=== PATIENT | male | born 1980 | race Caucasian/White ===

== ENCOUNTER → 2025-01-05 | Outpatient (CLI) | payer MEDICAID, SELFPAY ==
--- NOTE | 2025-01-05 11:30 | XR_ITS ---
Examination: CTA brain, head with intravenous contrast. 2-D sagittal, coronal reconstructions. 3-D reconstructions. Exam date and time: January 05, 2025, 1144 hours INDICATIONS: Headaches 3 years, history frontal CVA 3 years ago CTDI: vol (mGy) 19.9 DLP: (mGycm) 406 Technique: Multiple CTA axial brain, head images post intravenous contrast injection 75 cc, [id number]. 2-D sagittal, coronal reconstructions. 3-D reconstructions, 3-D post processing including vascular maximum intensity projection images. Low dose protocols were performed. One or more of the following dose reduction techniques were used; automated exposure control, adjustment of the mA and/or KV according to patient size, use of iterative reconstruction technique. Findings: Intracranial vertebral arteries basilar artery posterior cerebral branches fill with no large vessel occlusions Juxtasellar supraclinoid portions internal carotid arteries intact M1 segments middle cerebral arteries middle cerebral artery trifurcation vessels fill with no aneurysmal dilatation occlusion or thrombus Visualized anterior cerebral arteries intact IMPRESSION: No cerebral large vessel arterial occlusions, thrombus, dissection or cerebral aneurysm
== END | disposition home or self-care (01) ==
PROVIDERS: Referring Provider Physician Assistant; Visit Provider Physician Assistant
DX: I63.9 Cerebral infarction, unspecified (principal); Z87.828 Personal history of other (healed) physical injury and trauma
CPT/HCPCS: 70496; A4649; Q9967

== ENCOUNTER 2025-05-11 16:37 | Observation (INO) | payer MEDICAID, SELFPAY ==
[2025-05-11 16:55] VITALS: BP 133/86; PULSE 89; RESP 20; TEMP 36.8; O2SAT 100; BMI 22.3
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
--- NOTE | 2025-05-11 17:04 | EKG_ITS ---
[facility] Test Date: 2025-05-11 Pat Name: BHUMIKA ALEX Department: Room: - Gender: Male Training Consultant: : 1980 Requested By: Arvind Shepard (MARI) Order Number: [id number] Reading MD: Arvind Shepard (LOCKS TENDER) Measurements Intervals [place] Rate: 89 P: 76 [place]: 147 QRS: 70 QRSD: 94 T: 48 QT: 315 QTc: 384 Interpretive Statements SINUS RHYTHM INCOMPLETE RIGHT BUNDLE BRANCH BLOCK [90+ ms QRS DURATION, TERMINAL R IN V1/V2, 40+ ms S IN I/aVL/V4/V5/V6] No previous ECG available for comparison /store/S0/[id number]/ecg/[id number].pdf
--- NOTE | 2025-05-11 17:12 | PC.NURSE ---
CALLED PT TO MEDICATE, NO ANSWER.
--- NOTE | 2025-05-11 17:17 | PC.NURSE ---
CALLED PT TO GIVE MEDICATION, NO ANSWER SECOND CALL.
[2025-05-11] MEDS: IBUPROFEN TAB 400 MG TABLET 800 MG PO (17:42)
[2025-05-11 17:48] LABS: Lactate (Lactic Acid) 3.4 mMol/L (0.4-2.0)
[2025-05-11 17:55] LABS: Basophils # (Auto) 0.0 Thou/mm3 (0.0-0.2); Basophils % (Auto) 0 % (0-2.5); Eosinophils # (Auto) 0.4 Thou/mm3 (0.0-0.5); Eosinophils % (Auto) 3 % (0-10); Hematocrit 38.8 % (41.0-53.0); Hemoglobin 12.9 g/dL (13.5-16.0); Immature Granulocytes Auto 0.04 Thou/mm3 (0.00-0.00); Lymphocytes # (Auto) 1.8 Thou/mm3 (1.0-4.8); Lymphocytes % (Auto) 13 % (10-50); Mean Corpuscular HGB Conc 33.2 g/dl (31.0-37.0); Mean Corpuscular Hemoglobin 27.0 pg (25.0-35.0); Mean Corpuscular Volume 81 fL (80-100); Monocytes # (Auto) 1.1 Thou/mm3 (0.0-0.8); Monocytes % (Auto) 8 % (0-12); Neutrophils # (Auto) 10.3 Thou/mm3 (1.8-7.7); Neutrophils % (Auto) 76 % (37-80); Nucleated Red Blood Cell # 0.00 Thou/mm3 (0.00-0.00); Nucleated Red Blood Cell % 0 /100 WBC (0); Platelet Count 234 Thou/mm3 (140-440); RDW Standard Deviation 41.5 fL (35.1-43.9); Red Blood Count 4.77 Miln/mm3 (4.50-5.90); White Blood Count 13.6 Thou/mm3 (3.8-10.6)
[2025-05-11 18:04] LABS: INR 0.9 (0.9-1.3); Prothrombin Time 9.8 Seconds (9.0-12.2)
[2025-05-11 18:08] LABS: Sed Rate (ESR) 15 mm/hr (0-15)
--- NOTE | 2025-05-11 18:11 | XR_ITS ---
EXAMINATION: AP chest single view TECHNIQUE: AP portable upright chest single view Date and time: May 11, 2025, 1814 hours, comparison May 29, 1999 and INDICATION: Fever today. FINDINGS: Normal heart size Mild prominence central pulmonary arteries No lobar pneumonia or pulmonary edema Intact osseous structures IMPRESSION: Suspicious for pulmonary artery hypertension No lobar pneumonia
[2025-05-11 18:14] LABS: Alanine Aminotransferase 27 U/L (10-49); Albumin, Serum 4.1 gm/dL (3.5-5.0); Albumin/Globulin Ratio 1.5 (1.2-2.2); Alkaline Phosphatase 75 U/L (46-116); Anion Gap 11 (7-16); Aspartate Amino Transferase 33 U/L (0-34); BUN/Creatinine Ratio 14 Ratio (12-20); Bilirubin,Total 0.3 mg/dL (0.3-1.2); Blood Urea Nitrogen 14 mg/dL (9-23); C-Reactive Protein 5.4 mg/dL (0.0-0.9); Calcium 8.7 mg/dL (8.3-10.6); Calcium (Corrected) 8.7 mg/dL (8.5-10.1); Carbon Dioxide 29.3 mMol/L (20.0-31.0); Chloride 102 mMol/L (98-107); Creatinine (Component) 1.0 mg/dL (0.6-1.3); Estimated Creatinine Clearance 95.8 mL/min (>60); Globulin 2.7 gm/dL (2.3-3.5); Glucose 107 mg/dL (74-106); Osmolality,Calculated 283 (275-295); Potassium 3.5 mMol/L (3.4-5.1); Procalcitonin 0.19 ng/ml (0.0-0.49); Sodium 142 mMol/L (136-145); Total Protein 6.8 gm/dL (5.7-8.2); Troponin I 0.036 ng/mL (0.0-0.045); eGFR > 60 See Note
[2025-05-11 18:27] LABS: Magnesium 1.9 mg/dL (1.6-2.6)
[2025-05-11 18:32] VITALS: TEMP 37.9
--- NOTE | 2025-05-11 18:43 | PC.NURSE ---
pt refused in and out
[2025-05-11] MEDS: SODIUM CHLORIDE 0.9% 1000 ML 1,000 ML 999 ML IV (18:44)
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
[2025-05-11] MEDS: ceFAZolin/D5W 2 GM IV 2 GM/100 ML BAG IV (18:45)
[2025-05-11 19:18] VITALS: BP 126/86; PULSE 104; RESP 18; TEMP 36.7; O2SAT 98
[2025-05-11 19:28] LABS: Collection Type, Urine Clean Catch; Squamous Epithelial Cell,Urine 0 /hpf (0-5); WBC,Urine 0 /hpf (0-5)
[2025-05-11 19:33] LABS: Bilirubin,Urine Negative (Negative); Blood,Urine 2+ (Negative); Clarity,Urine Clear (Clear/Hazy); Color,Urine Lt-Yellow (Lt Yel-Yel); Culture Indicated,Urine Not Indicated; Glucose, Urine Negative (Negative); Ketones,Urine Negative (Negative); Leukocyte Esterase,Urine Negative (Negative); Nitrite,Urine Negative (Negative); PH,Urine 6.0 (5.0-7.0); Protein,Urine Negative (Neg - Trace); RBC,Urine 8 /hpf (0-3); Specific Gravity,Urine 1.013 (1.001-1.035); Urobilinogen,Urine Negative mg/dL (0.0-1.0)
[2025-05-11 19:59] LABS: Lactate (Lactic Acid) 1.6 mMol/L (0.4-2.0)
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
[2025-05-11 20:39] LABS: Amphetamine/Methamp Scrn,U Positive (Negative); Barbiturate Screen,Urine Negative (Negative); Benzodiazepines Screen,Urine Negative (Negative); Benzoylecgonine Screen, Ur Negative (Negative); Fentanyl Screen,Urine Negative (Negative); Opiate Screen,Urine Negative (Negative); THC Screen,Urine Positive (Negative)
[2025-05-11 20:46] LABS: Reflex Lactate? Y
[2025-05-11 20:49] VITALS: PULSE 80; RESP 16; RESP 96
[2025-05-11 21:00] VITALS: BP 145/96; PULSE 98; RESP 16; TEMP 37.2; O2SAT 99
[2025-05-11] MEDS: KETOROLAC INJ 30 MG/ML VIAL IVP (21:14)
--- NOTE | 2025-05-11 21:18 | PC.NURSE ---
PT DOES NOT TAKE MEDICATIONS AT HOME PT USES MARIJUANA BUT DOES NOT TAKE ANY MEDICATIONS PER PT
--- NOTE | 2025-05-11 21:20 | PC.NURSE ---
MELATONIN NOT AVAILBLE IN [facility] AVAILABLE UPSTAIRS
[2025-05-11 22:00] VITALS: BMI 23.6
[2025-05-11] MEDS: MELATONIN 3 MG TABLET PO (23:22)
[2025-05-12] VITALS: BP 128/88; PULSE 82; RESP 18; TEMP 37.7; O2SAT 96
[2025-05-12 02:41] VITALS: TEMP 37.2
[2025-05-12] MEDS: ACETAMINOPHEN 325 MG TABLET 650 MG PO (02:46)
--- NOTE | 2025-05-12 03:00 | PC.NURSE ---
pt anxious- wants to go home, I'm afraid to . My left arm is swollen. It's hot in the room. They haven't given me antibiotic. I can just take my medicine at home. I feel like my left arm is gonna explode. - Reorientation, reassurance done, lowered room temperature, tylenol given.
[2025-05-12 04:00] VITALS: BP 120/92; PULSE 94; RESP 18; TEMP 37.5; O2SAT 97
[2025-05-12 05:36] LABS: Basophils # (Auto) 0.0 Thou/mm3 (0.0-0.2); Basophils % (Auto) 0 % (0-2.5); Eosinophils # (Auto) 0.1 Thou/mm3 (0.0-0.5); Eosinophils % (Auto) 1 % (0-10); Hematocrit 40.7 % (41.0-53.0); Hemoglobin 13.8 g/dL (13.5-16.0); Immature Granulocytes Auto 0.09 Thou/mm3 (0.00-0.00); Lymphocytes # (Auto) 1.6 Thou/mm3 (1.0-4.8); Lymphocytes % (Auto) 9 % (10-50); Mean Corpuscular HGB Conc 33.9 g/dl (31.0-37.0); Mean Corpuscular Hemoglobin 27.4 pg (25.0-35.0); Mean Corpuscular Volume 81 fL (80-100); Monocytes # (Auto) 1.6 Thou/mm3 (0.0-0.8); Monocytes % (Auto) 9 % (0-12); Neutrophils # (Auto) 14.6 Thou/mm3 (1.8-7.7); Neutrophils % (Auto) 81 % (37-80); Nucleated Red Blood Cell # 0.00 Thou/mm3 (0.00-0.00); Nucleated Red Blood Cell % 0 /100 WBC (0); Platelet Count 239 Thou/mm3 (140-440); RDW Standard Deviation 40.4 fL (35.1-43.9); Red Blood Count 5.04 Miln/mm3 (4.50-5.90); White Blood Count 18.1 Thou/mm3 (3.8-10.6)
--- NOTE | 2025-05-12 06:00 | PC.NURSE ---
left foreearm abrasions with moderate amount of serous drainage- Cleansed with wound cleanser, pat jojo, applied triple antibiotic, covered with 4x4 fluff, wrapped with kerlix. Right knee abrasion- wound cleanser, triple antibiotic, covered with 4x4 fluff, secured with papertape.
[2025-05-12 06:06] LABS: Albumin, Serum 4.0 gm/dL (3.5-5.0); Anion Gap 11 (7-16); BUN/Creatinine Ratio 11 Ratio (12-20); Blood Urea Nitrogen 9 mg/dL (9-23); Calcium 8.8 mg/dL (8.3-10.6); Calcium (Corrected) 8.8 mg/dL (8.5-10.1); Carbon Dioxide 26.3 mMol/L (20.0-31.0); Chloride 107 mMol/L (98-107); Creatinine (Component) 0.8 mg/dL (0.6-1.3); Estimated Creatinine Clearance 124.2 mL/min (>60); Glucose 117 mg/dL (74-106); Osmolality,Calculated 286 (275-295); Phosphorous 3.7 mg/dL (2.4-5.1); Potassium 3.6 mMol/L (3.4-5.1); Sodium 144 mMol/L (136-145); eGFR > 60 See Note
[2025-05-12] MEDS: KETOROLAC INJ 30 MG/ML VIAL IVP (06:27)
--- NOTE | 2025-05-12 06:32 | PC.NURSE ---
T=99.5- cooling mwasures applied.
[2025-05-12 08:00] VITALS: BP 133/87; PULSE 96; RESP 18; TEMP 37.2; O2SAT 96
--- NOTE | 2025-05-12 08:59 | PC.NURSE ---
cleaned wound with wound cleanser, scabbing, wrapped with Kerlex
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
== END 2025-05-12 08:48 | disposition home or self-care (01) ==
LOC: SERX 19:47 → S3NX 05-12 08:21 → SERHOLD 05-17 13:33
PROVIDERS: Nurse Practitioner Primary Care; Admitting Provider Student in an Organized Health Care Education/Training Program; Emergency Provider Emergency Medicine; PCP Family Medicine; Visit Provider Student in an Organized Health Care Education/Training Program
DX: L03.114 Cellulitis of left upper limb (principal); G93.40 Encephalopathy, unspecified; Z86.73 Personal history of transient ischemic attack (TIA), and cerebral infarction without residual deficits; M40.204 Unspecified kyphosis, thoracic region; F12.90 Cannabis use, unspecified, uncomplicated; F15.90 Other stimulant use, unspecified, uncomplicated
CPT/HCPCS: 36415; 70450; 71045; 72125; 73060; 73080; 73090; 80053; 80069; 80307; 81001; 83605; 83735; 84145; 84484; 85025; 85610; 85652; 86140; 87040; 93005; 96365; 96375; 96376; 99284; G0378; J0689; J1885; J7030; A9270

== ENCOUNTER 2025-05-13 03:37 | Inpatient (IN) | payer MEDICAID, SELFPAY ==
[2025-05-13 03:39] VITALS: BMI 21.9
[2025-05-13 03:48] VITALS: BP 136/89; PULSE 113; RESP 18; TEMP 37.6; O2SAT 98
--- NOTE | 2025-05-13 03:51 | XR_ITS ---
Examination: Duplex scan of the upper extremity, unilateral left Date and time of exam: May 13, 2025, 0400 hours INDICATIONS: Left arm swelling beginning 3 days ago Technique: Duplex scan of the extremity veins using B-mode/grayscale imaging and Doppler spectral analysis and color flow Attention is directed to internal echogenicity, compression and augmentation involving these veins, color flow assessment, spectral analysis Findings: Major deep venous structures in the extremity demonstrate normal course and caliber. There is no evidence of deep vein thrombosis. Normal color flow and spectral analysis Impression: Negative for DVT..
--- NOTE | 2025-05-13 03:51 | PD.EDRME ---
Rapid Medical Screening Exam RME Arrival date/time: 05/13/25 03:37 44M with history of CVA and drug use presents to ED with worsening LUE redness, pain, swelling, and fevers/chills. Patient signed out AMA from upstairs yesterday because they were planning on discharging him anyway. 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 Chief Complaint: General Adult/Misc Complain Vital signs: Vital Signs Temperature 99.7 F 05/13/25 03:48 Pulse Rate 113 H 05/13/25 03:48 Respiratory Rate 18 05/13/25 03:48 Blood Pressure 136/89 H 05/13/25 03:48 Pulse Oximetry (%) 98 05/13/25 03:48 Oxygen Delivery Method Room Air 05/13/25 03:48 Exam: LUE redness and swelling. Clinical Impression: cellulitis vs DVT vs infected DVT
[2025-05-13 04:39] LABS: Lactate (Lactic Acid) 1.7 mMol/L (0.4-2.0)
[2025-05-13 04:45] LABS: Basophils # (Auto) 0.1 Thou/mm3 (0.0-0.2); Basophils % (Auto) 0 % (0-2.5); Eosinophils # (Auto) 0.3 Thou/mm3 (0.0-0.5); Eosinophils % (Auto) 2 % (0-10); Hematocrit 38.4 % (41.0-53.0); Hemoglobin 12.6 g/dL (13.5-16.0); Immature Granulocytes Auto 0.10 Thou/mm3 (0.00-0.00); Lymphocytes # (Auto) 1.4 Thou/mm3 (1.0-4.8); Lymphocytes % (Auto) 9 % (10-50); Mean Corpuscular HGB Conc 32.8 g/dl (31.0-37.0); Mean Corpuscular Hemoglobin 26.6 pg (25.0-35.0); Mean Corpuscular Volume 81 fL (80-100); Monocytes # (Auto) 1.5 Thou/mm3 (0.0-0.8); Monocytes % (Auto) 9 % (0-12); Neutrophils # (Auto) 12.7 Thou/mm3 (1.8-7.7); Neutrophils % (Auto) 79 % (37-80); Nucleated Red Blood Cell # 0.00 Thou/mm3 (0.00-0.00); Nucleated Red Blood Cell % 0 /100 WBC (0); Platelet Count 260 Thou/mm3 (140-440); RDW Standard Deviation 41.0 fL (35.1-43.9); Red Blood Count 4.73 Miln/mm3 (4.50-5.90); White Blood Count 16.0 Thou/mm3 (3.8-10.6)
[2025-05-13 04:51] LABS: Sed Rate (ESR) 39 mm/hr (0-15)
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
[2025-05-13 05:15] LABS: Alanine Aminotransferase 49 U/L (10-49); Albumin, Serum 4.0 gm/dL (3.5-5.0); Albumin/Globulin Ratio 1.5 (1.2-2.2); Alkaline Phosphatase 86 U/L (46-116); Anion Gap 11 (7-16); Aspartate Amino Transferase 38 U/L (0-34); BUN/Creatinine Ratio 11 Ratio (12-20); Bilirubin,Total 0.2 mg/dL (0.3-1.2); Blood Urea Nitrogen 10 mg/dL (9-23); C-Reactive Protein 16.4 mg/dL (0.0-0.9); Calcium 8.6 mg/dL (8.3-10.6); Calcium (Corrected) 8.6 mg/dL (8.5-10.1); Carbon Dioxide 25.4 mMol/L (20.0-31.0); Chloride 105 mMol/L (98-107); Creatinine (Component) 0.9 mg/dL (0.6-1.3); Estimated Creatinine Clearance 107.7 mL/min (>60); Globulin 2.7 gm/dL (2.3-3.5); Glucose 116 mg/dL (74-106); Osmolality,Calculated 281 (275-295); Potassium 3.5 mMol/L (3.4-5.1); Procalcitonin 0.32 ng/ml (0.0-0.49); Sodium 141 mMol/L (136-145); Total Protein 6.7 gm/dL (5.7-8.2); eGFR > 60 See Note
[2025-05-13 06:04] VITALS: BP 103/70; PULSE 82; RESP 15; TEMP 36.8; O2SAT 95
[2025-05-13] MEDS: CLINDAMYCIN 900MG IVPB 900 MG in PRE-MIXED 1 BAG 50 MG IV (06:12)
[2025-05-13] MEDS: MORPHINE SULF INJ 4 MG/ML VIAL IVP (06:13)
[2025-05-13] MEDS: SODIUM CHLORIDE 0.9% 1000 ML 1,000 ML 999 ML IV (06:13)
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
[2025-05-13 11:01] VITALS: BP 123/76; PULSE 95; RESP 19; O2SAT 99
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
[2025-05-13] MEDS: NICOTINE PATCH 14 MG/24 HR PATCH.TD24 TOP (14:36)
[2025-05-13 14:46] VITALS: BP 125/90; PULSE 90; RESP 18; TEMP 37.2; O2SAT 98
[2025-05-13] MEDS: Vancomycin Inj 1,500 MG in SODIUM CHLORIDE 0.9% 500 ML 500 ML 250 MG IV (14:54)
[2025-05-13] MEDS: ACETAMIN/CAFF/BUTAL (Fioricet) 1 TAB 2 TAB PO (14:54)
--- NOTE | 2025-05-13 16:10 | PC.NURSE ---
Report called to Kourtney MALCOLM
[2025-05-13 17:14] VITALS: BMI 21.9
[2025-05-13 20:00] VITALS: BP 120/85; PULSE 101; RESP 18; TEMP 36.7; O2SAT 97
[2025-05-14] VITALS (8 sets, daily range): BP systolic 130–146; BP diastolic 87–93; PULSE 74–106; RESP 17–97; TEMP 36.8–37.6; O2SAT 93–100
[2025-05-14 06:02] LABS: Basophils # (Auto) 0.1 Thou/mm3 (0.0-0.2); Basophils % (Auto) 0 % (0-2.5); Eosinophils # (Auto) 0.3 Thou/mm3 (0.0-0.5); Eosinophils % (Auto) 3 % (0-10); Hematocrit 37.6 % (41.0-53.0); Hemoglobin 12.4 g/dL (13.5-16.0); Immature Granulocytes Auto 0.09 Thou/mm3 (0.00-0.00); Lymphocytes # (Auto) 2.0 Thou/mm3 (1.0-4.8); Lymphocytes % (Auto) 15 % (10-50); Mean Corpuscular HGB Conc 33.0 g/dl (31.0-37.0); Mean Corpuscular Hemoglobin 26.4 pg (25.0-35.0); Mean Corpuscular Volume 80 fL (80-100); Monocytes # (Auto) 1.3 Thou/mm3 (0.0-0.8); Monocytes % (Auto) 10 % (0-12); Neutrophils # (Auto) 9.7 Thou/mm3 (1.8-7.7); Neutrophils % (Auto) 72 % (37-80); Nucleated Red Blood Cell # 0.00 Thou/mm3 (0.00-0.00); Nucleated Red Blood Cell % 0 /100 WBC (0); Platelet Count 306 Thou/mm3 (140-440); RDW Standard Deviation 41.1 fL (35.1-43.9); Red Blood Count 4.70 Miln/mm3 (4.50-5.90); White Blood Count 13.5 Thou/mm3 (3.8-10.6)
[2025-05-14 06:21] LABS: Anion Gap 11 (7-16); BUN/Creatinine Ratio 9 Ratio (12-20); Blood Urea Nitrogen 8 mg/dL (9-23); Calcium 8.7 mg/dL (8.3-10.6); Carbon Dioxide 26.7 mMol/L (20.0-31.0); Chloride 104 mMol/L (98-107); Creatinine (Component) 0.9 mg/dL (0.6-1.3); Estimated Creatinine Clearance 107.7 mL/min (>60); Glucose 118 mg/dL (74-106); Osmolality,Calculated 282 (275-295); Potassium 3.7 mMol/L (3.4-5.1); Sodium 142 mMol/L (136-145); eGFR > 60 See Note
[2025-05-14] MEDS: NICOTINE PATCH 14 MG/24 HR PATCH.TD24 TOP (08:35)
[2025-05-14] MEDS: VANCOMYCIN/WATER 1GM IVPB 200 ML IV ×2 (09:46→21:43)
--- NOTE | 2025-05-14 09:47 | ESPR_ITS ---
<Statement entered by Rosalie Wolfe MD - 05/16/25 08:03> I reviewed above note and agree with findings and plans. I have also personally examined the patient with medicine team and went over assessment and plan with medical team including analytics intern and resident physician. Documentation for date of: 05/14/25 Subjective Subjective Interval history: Patient seen and examined this morning. Reports significant improvement in left upper extremity pain and swelling compared to yesterday. States pain is much better and swelling has markedly decreased. Denies fevers, chills, nausea, vomiting, chest pain, shortness of breath, or new complaints. Tolerating diet. No issues with current medications. Exam Vital Signs Temp Pulse Resp BP Pulse Ox O2 Del Method 98.9 F 89 19 130/88 H 97 Room Air 05/14/25 08:00 05/14/25 08:00 05/14/25 08:00 05/14/25 08:00 05/14/25 08:00 05/14/25 08:00 Narrative Exam General: Awake, alert, oriented ?3, non-toxic appearing HEENT: Normocephalic, atraumatic; pupils equal and reactive; moist oral mucosa Neck: Supple, no meningismus, no JVD Cardiovascular: Regular rate and rhythm, no murmurs Respiratory: Clear to auscultation bilaterally, no distress Abdomen: Soft, non-tender, non-distended Extremities: * Left upper extremity with markedly improved erythema and swelling compared to prior exams * No new drainage or purulence * No fluctuance or crepitus * Improved range of motion Neuro: No focal deficits Skin: Warm, dry Neurologic: Cranial nerves II?XII intact; no focal deficits; GCS 15 Psychiatric: Cooperative, appropriate mood and affect Objective Labs 05/14/25 04:59 05/14/25 04:59 Labs: Laboratory Results - last 24 hr 05/14/25 04:59 WBC 13.5 H RBC 4.70 Hgb 12.4 L Hct 37.6 L MCV 80 MCH 26.4 MCHC 33.0 RDW Std Deviation 41.1 Plt Count 306 D Neut % (Auto) 72 Lymph % (Auto) 15 Reagan % (Auto) 10 Eos % (Auto) 3 Baso % (Auto) 0 Neut # (Auto) 9.7 H Lymph # (Auto) 2.0 Reagan # (Auto) 1.3 H Eos # (Auto) 0.3 Baso # (Auto) 0.1 Immature Gran # (Auto) 0.09 H Absolute Nucleated RBC 0.00 Immature Gran % 1 H Nucleated RBC % 0 Sodium 142 Potassium 3.7 Chloride 104 Carbon Dioxide 26.7 Anion Gap 11 BUN 8 L Creatinine 0.9 Estim Creat Clear Calc 107.7 eGFR > 60 BUN/Creatinine Ratio 9 L Glucose 118 H Calculated Osmolality 282 Calcium 8.7 Quality Measures Quality Measures VTE prophylaxis Assessment & Plan Assessment Current Active Medications: Generic Name Dose Route Start Last Admin Trade Name Freq PRN Reason Stop Dose Admin Acetaminophen 650 mg 05/13/25 14:05 Acetaminophen 325 Mg Tablet PO 06/12/25 14:04 Q6H PRN Fever >100.4 or pain 1-5 Hydrocodone Bitart/Acetaminophen 1 tab 05/13/25 14:05 Hydrocodone/Apap 5/325 Tablet PO 05/18/25 14:04 Q6HR PRN Pain Scale 6-10 Docusate Sodium 100 mg 05/13/25 14:05 Docusate Sod 100 Mg Capsule PO 06/12/25 14:04 QDAY PRN CONSTIPATION Protocol Enoxaparin Sodium 40 mg 05/14/25 09:00 05/14/25 08:41 Enoxaparin Sod Inj 40 Mg/0.4 Ml Syringe SC 05/28/25 08:59 Not Given QDAY ERIK Vancomycin HCl 200 mls @ 120 mls/hr 05/14/25 10:00 05/14/25 09:46 Vancomycin/Water 1gm Ivpb IV 05/21/25 09:59 120 mls/hr BID@1000,2200 ERIK Administration Nicotine 14 mg 05/13/25 14:15 05/14/25 08:35 Nicotine Patch 14 Mg/24 Hr Patch.Td24 TOP 06/12/25 14:14 14 mg QDAY ERIK Administration Ondansetron HCl 4 mg 05/13/25 14:05 Ondansetron Inj 2 Mg/Ml Inj 2 Ml IVP 06/12/25 14:04 Q6H PRN NAUSEA OR VOMITING Protocol Pantoprazole Sodium 40 mg 05/14/25 09:00 05/14/25 08:35 Pantoprazole Inj 40 Mg Vial IVP 06/13/25 08:59 40 mg QDAY ERIK Administration Pharmacy Consult 1 each 05/13/25 14:15 Vancomycin Pharmacy To Dose 1 Each Each IV 06/12/25 14:14 QDAY PRN SSTI Plan 44-year-old male with history of CVA, traumatic brain injury, and polysubstance use, admitted under observation for severe left upper extremity cellulitis, now clinically improving on IV antibiotics. # Severe Left Upper Extremity Cellulitis with Purulence # Failure of Outpatient Antibiotic Therapy Progressive traumatic cellulitis following dermabrasion from recent fall, now with worsening erythema, swelling, circumferential edema from wrist to axilla, and gross purulence. Associated with chills and elevated inflammatory markers. Failure of outpatient therapy is due to inability to obtain antibiotics, rather than true non-response. Leukocytosis and elevated ESR/CRP without hypotension, lactic acidosis, or end- organ dysfunction; no current evidence of sepsis. Necrotizing soft tissue infection considered but less likely given hemodynamic stability, normal lactate, absence of crepitus, skin necrosis or pain out of proportion, and CTA negative for deep tissue involvement. Given extent of infection and purulence, requires close monitoring. 05/14: Improving cellulitis with decreasing pain, swelling, and erythema on IV therapy. No evidence of sepsis or necrotizing infection at this time. Plan: * Continue IV vancomycin for one more day * Continue serial exams of LUE * Maintain elevation of affected extremity * Monitor WBC and clinical status * Plan to transition to oral antibiotics and discharge tomorrow if improvement continues # Nicotine Dependence # Polysubstance Use Disorder # Caffeine Dependence # Withdrawal Prevention Active daily smoker. History of methamphetamine and marijuana use. No signs of acute intoxication or withdrawal at this time. Reports daily caffeine use with risk of withdrawal headaches during hospitalization. Plan: * Start nicotine patch * Smoking cessation counseling * Start caffeine tablets as needed * Syrup Maker on substance cessation * Monitor mental status # History of CVA and Traumatic Brain Injury No acute neurologic deficits on presentation. Plan: * Continue neurologic monitoring * Fall precautions Health Maintenance: Diet: Regular DVT Prophylaxis: Enoxaparin Lines: PIV Code Status: Full Code ----- Plan discussed with attending physician Dr. Aiden Copeland MD PGY-1 Internal Medicine
[2025-05-15] VITALS (8 sets, daily range): BP systolic 107–135; BP diastolic 76–99; PULSE 73–103; RESP 17–99; TEMP 36.3–37.4; O2SAT 94–100
[2025-05-15] MEDS: ACETAMINOPHEN 325 MG TABLET 650 MG PO ×2 (00:07→22:39)
[2025-05-15 06:09] LABS: Basophils # (Auto) 0.1 Thou/mm3 (0.0-0.2); Basophils % (Auto) 1 % (0-2.5); Eosinophils # (Auto) 0.6 Thou/mm3 (0.0-0.5); Eosinophils % (Auto) 4 % (0-10); Hematocrit 37.5 % (41.0-53.0); Hemoglobin 12.6 g/dL (13.5-16.0); Immature Granulocytes Auto 0.18 Thou/mm3 (0.00-0.00); Lymphocytes # (Auto) 2.3 Thou/mm3 (1.0-4.8); Lymphocytes % (Auto) 18 % (10-50); Mean Corpuscular HGB Conc 33.6 g/dl (31.0-37.0); Mean Corpuscular Hemoglobin 27.0 pg (25.0-35.0); Mean Corpuscular Volume 81 fL (80-100); Monocytes # (Auto) 1.3 Thou/mm3 (0.0-0.8); Monocytes % (Auto) 10 % (0-12); Neutrophils # (Auto) 8.9 Thou/mm3 (1.8-7.7); Neutrophils % (Auto) 67 % (37-80); Nucleated Red Blood Cell # 0.00 Thou/mm3 (0.00-0.00); Nucleated Red Blood Cell % 0 /100 WBC (0); Platelet Count 360 Thou/mm3 (140-440); RDW Standard Deviation 41.8 fL (35.1-43.9); Red Blood Count 4.66 Miln/mm3 (4.50-5.90); White Blood Count 13.4 Thou/mm3 (3.8-10.6)
[2025-05-15 06:26] LABS: Anion Gap 9 (7-16); BUN/Creatinine Ratio 13 Ratio (12-20); Blood Urea Nitrogen 10 mg/dL (9-23); Calcium 8.6 mg/dL (8.3-10.6); Carbon Dioxide 29.0 mMol/L (20.0-31.0); Chloride 107 mMol/L (98-107); Creatinine (Component) 0.8 mg/dL (0.6-1.3); Estimated Creatinine Clearance 121.2 mL/min (>60); Glucose 104 mg/dL (74-106); Osmolality,Calculated 287 (275-295); Potassium 3.7 mMol/L (3.4-5.1); Sodium 145 mMol/L (136-145); eGFR > 60 See Note
[2025-05-15 09:53] LABS: Vancomycin,Trough 5.3 mcg/mL (5.0-10.0)
[2025-05-15] MEDS: NICOTINE PATCH 14 MG/24 HR PATCH.TD24 TOP (10:02)
[2025-05-15] MEDS: ENOXAPARIN SOD INJ 40 MG/0.4 ML SYRINGE SC (10:02)
[2025-05-15] MEDS: VANCOMYCIN/WATER 1GM IVPB 200 ML IV ×2 (10:53→22:02)
--- NOTE | 2025-05-15 12:40 | ESPR_ITS ---
<Statement entered by Rosalie Wolfe MD - 05/16/25 14:34> I reviewed above note and agree with findings and plans. I have also personally examined the patient with medicine team and went over assessment and plan with medical team including international account manager and resident physician. <Statement entered by Josiah Dumont MD - 05/15/25 13:18> Patient was examined and case was reviewed with team including attending physician. Note reviewed, I agree with most of its contents and agree with the patient's care as documented by Dr. Hines Patient seen today at the bedside found awake, alert, orientedx3. No overnight events reported. No active complaints at this time states improvement with range of motion of left upper extremity. Vitals and labs reviewed. Patient will continue 1 more day of IV antibiotic therapy. Patient will be transition to p.o. route in the a.m. and possible discharge in the next 24-48 hours. case discussed with my attending Dr. Aiden Dumont MD PGY-2 Disclaimer: Despite multiple revisions, due to the dictation software being used, the document bellow may not be free of grammatical errors including phonetic/typographic errors. However, this does not deter from our commitment to providing health care in the patient's best interest in mind. Documentation for date of: 05/15/25 Subjective Subjective Interval history: - No acute events overnight. - Patient seen and examined at bedside this morning. - Reports improvement in left upper extremity pain and swelling compared to yesterday. - Reports that pain is well controlled. - Patient has no complaints at this time. - Continue with IV Vancomycin. Will discharge with Bactrim. Exam Vital Signs Temp Pulse Resp BP Pulse Ox O2 Del Method 98.6 F 94 18 131/99 H 99 Room Air 05/15/25 12:00 05/15/25 12:00 05/15/25 12:00 05/15/25 12:00 05/15/25 12:00 05/15/25 12:00 Narrative Exam Physical Exam General: Awake and in no acute distress. Conversational and non-toxic appearing. HEENT: Normocephalic, atraumatic, extraocular movements intact, pupils equal and reactive to light. No JVD or bruits. Heart: Regular rate and rhythm, no murmurs, rubs or gallops. Lungs: Clear to auscultation with no wheezing or crackles bilaterally. Non- labored respirations, symmetric chest rise, no use of accessory muscles. Abdomen: Soft, nondistended, nontender. No guarding or rebound tenderness. Neurologic: Alert and oriented x3, no gross neurological deficit, and patient able to move all 4 extremities. Extremities: Left upper extremity with markedly improved erythema and swelling. No new drainage or purulence. No fluctuance or crepitus. Improved range of motion. Skin: Warm and dry without rashes. Psychiatric: Cooperative, appropriate mood and affect. Objective Labs 05/15/25 04:35 05/15/25 04:35 Labs: Laboratory Results - last 24 hr 05/15/25 05/15/25 04:35 09:08 WBC 13.4 H RBC 4.66 Hgb 12.6 L Hct 37.5 L MCV 81 MCH 27.0 MCHC 33.6 RDW Std Deviation 41.8 Plt Count 360 D Neut % (Auto) 67 Lymph % (Auto) 18 Garfield % (Auto) 10 Eos % (Auto) 4 Baso % (Auto) 1 Neut # (Auto) 8.9 H Lymph # (Auto) 2.3 Garfield # (Auto) 1.3 H Eos # (Auto) 0.6 H Baso # (Auto) 0.1 Immature Gran # (Auto) 0.18 H Absolute Nucleated RBC 0.00 Immature Gran % 1 H Nucleated RBC % 0 Sodium 145 Potassium 3.7 Chloride 107 Carbon Dioxide 29.0 Anion Gap 9 BUN 10 Creatinine 0.8 Estim Creat Clear Calc 121.2 eGFR > 60 BUN/Creatinine Ratio 13 Glucose 104 Calculated Osmolality 287 Calcium 8.6 Vancomycin Trough 5.3 Quality Measures Quality Measures VTE prophylaxis Assessment & Plan Assessment Current Active Medications: Generic Name Dose Route Start Last Admin Trade Name Freq PRN Reason Stop Dose Admin Acetaminophen 650 mg 05/13/25 14:05 05/15/25 00:07 Acetaminophen 325 Mg Tablet PO 06/12/25 14:04 650 mg Q6H PRN Administration Fever >100.4 or pain 1-5 Hydrocodone Bitart/Acetaminophen 1 tab 05/13/25 14:05 Hydrocodone/Apap 5/325 Tablet PO 05/18/25 14:04 Q6HR PRN Pain Scale 6-10 Docusate Sodium 100 mg 05/13/25 14:05 Docusate Sod 100 Mg Capsule PO 06/12/25 14:04 QDAY PRN CONSTIPATION Protocol Enoxaparin Sodium 40 mg 05/14/25 09:00 05/15/25 10:02 Enoxaparin Sod Inj 40 Mg/0.4 Ml Syringe SC 05/28/25 08:59 40 mg QDAY ERIK Administration Vancomycin HCl 200 mls @ 120 mls/hr 05/15/25 10:45 05/15/25 10:53 Vancomycin/Water 1gm Ivpb IV 05/22/25 10:44 120 mls/hr TID ERIK Administration Nicotine 14 mg 05/13/25 14:15 05/15/25 10:02 Nicotine Patch 14 Mg/24 Hr Patch.Td24 TOP 06/12/25 14:14 14 mg QDAY ERIK Administration Ondansetron HCl 4 mg 05/13/25 14:05 Ondansetron Inj 2 Mg/Ml Inj 2 Ml IVP 06/12/25 14:04 Q6H PRN NAUSEA OR VOMITING Protocol Pantoprazole Sodium 40 mg 05/14/25 09:00 05/15/25 10:02 Pantoprazole Inj 40 Mg Vial IVP 06/13/25 08:59 40 mg QDAY ERIK Administration Pharmacy Consult 1 each 05/13/25 14:15 Vancomycin Pharmacy To Dose 1 Each Each IV 06/12/25 14:14 QDAY PRN SSTI Plan 44-year-old male with history of CVA, traumatic brain injury, and polysubstance use, admitted under observation for severe left upper extremity cellulitis, now clinically improving on IV antibiotics. #Severe left upper extremity cellulitis with purulence #Failure of outpatient antibiotic therapy - Progressive traumatic cellulitis following dermabrasion from recent fall, now with worsening erythema, swelling, circumferential edema from wrist to axilla, and gross purulence. - Associated with chills and elevated inflammatory markers. - Failure of outpatient therapy is due to inability to obtain antibiotics, rather than true non-response. - Leukocytosis and elevated ESR/CRP without hypotension, lactic acidosis, or end-organ dysfunction. No current evidence of sepsis. - Necrotizing soft tissue infection considered but less likely given hemodynamic stability, normal lactate, absence of crepitus, skin necrosis or pain out of proportion, and CTA negative for deep tissue involvement. - Given extent of infection and purulence, requires close monitoring. - No evidence of sepsis or necrotizing infection at this time. Plan: * Continue IV vancomycin (05/14-). * Continue serial exams of LUE. * Maintain elevation of affected extremity. * Monitor WBC and clinical status. * Plan to transition to oral antibiotics and discharge tomorrow if improvement continues. #Nicotine dependence #Polysubstance use disorder #Caffeine dependence #Withdrawal prevention - Active daily smoker. - History of methamphetamine and marijuana use. - No signs of acute intoxication or withdrawal at this time. - Reports daily caffeine use with risk of withdrawal headaches during hospitalization. Plan: * Continue nicotine patch. * Smoking cessation counseling. * Continue caffeine tablets as needed. * Marketing Support Coordinator on substance cessation. * Monitor mental status. #History of CVA and traumatic brain injury - No acute neurological deficits on presentation. Plan: * Continue neurological monitoring. * Fall precautions. Health Maintenance Disposition: med surg DVT prophylaxis: Enoxaparin GI prophylaxis: Pantoprazole 40 mg IV daily Diet: regular Lines: Peripheral IV CODE STATUS: FULL --- Patient plan of care was discussed with the senior resident, Dr. Ariel Dumont, and attending physician, Dr. Wolfe. Aida Hines DO PGY-1
--- NOTE | 2025-05-15 14:24 | PC.SS ---
Kristian Perez is a 44 year-old male admitted to [facility] for Cellulitis. SS conducted bedside contact with the patient to complete initial assessment and to discuss discharge planning. Role and reason explained. Patient confirmed demographic information. Patient identifies his dad Kristian Perez [phone] as his surrogate decision maker. Pt states he is able to complete all ADL?s independent. Pt does not utilize and DME. Pts PCP is [facility]. Pharmacy of choice is [facility]. Discharge options discussed and the pt wishes to return home.? Pt dad will provide transport. No further intervention required at this time, marriage and family social worker would be available to address any further concerns. DC Plan: Home Contact: Ryan Townsend Address: Confirmed on face sheet PCP: [facility]
[2025-05-15] MEDS: MELATONIN 3 MG TABLET 6 MG PO (22:39)
[2025-05-16] VITALS: BP 121/86; PULSE 75; RESP 19; TEMP 36.5; O2SAT 96
[2025-05-16 04:00] VITALS: BP 135/87; PULSE 74; RESP 16; TEMP 36.1; O2SAT 97
[2025-05-16] MEDS: VANCOMYCIN/WATER 1GM IVPB 200 ML IV (05:47)
[2025-05-16 06:04] LABS: Basophils # (Auto) 0.2 Thou/mm3 (0.0-0.2); Basophils % (Auto) 2 % (0-2.5); Eosinophils # (Auto) 0.7 Thou/mm3 (0.0-0.5); Eosinophils % (Auto) 5 % (0-10); Hematocrit 39.7 % (41.0-53.0); Hemoglobin 12.9 g/dL (13.5-16.0); Immature Granulocytes Auto 0.61 Thou/mm3 (0.00-0.00); Lymphocytes # (Auto) 2.6 Thou/mm3 (1.0-4.8); Lymphocytes % (Auto) 20 % (10-50); Mean Corpuscular HGB Conc 32.5 g/dl (31.0-37.0); Mean Corpuscular Hemoglobin 26.3 pg (25.0-35.0); Mean Corpuscular Volume 81 fL (80-100); Monocytes # (Auto) 1.2 Thou/mm3 (0.0-0.8); Monocytes % (Auto) 9 % (0-12); Neutrophils # (Auto) 7.8 Thou/mm3 (1.8-7.7); Neutrophils % (Auto) 60 % (37-80); Nucleated Red Blood Cell # 0.00 Thou/mm3 (0.00-0.00); Nucleated Red Blood Cell % 0 /100 WBC (0); Platelet Count 423 Thou/mm3 (140-440); RDW Standard Deviation 41.8 fL (35.1-43.9); Red Blood Count 4.90 Miln/mm3 (4.50-5.90); White Blood Count 13.1 Thou/mm3 (3.8-10.6)
[2025-05-16 06:51] LABS: Anion Gap 11 (7-16); BUN/Creatinine Ratio 14 Ratio (12-20); Blood Urea Nitrogen 11 mg/dL (9-23); Calcium 8.9 mg/dL (8.3-10.6); Carbon Dioxide 26.1 mMol/L (20.0-31.0); Chloride 107 mMol/L (98-107); Creatinine (Component) 0.8 mg/dL (0.6-1.3); Estimated Creatinine Clearance 121.2 mL/min (>60); Glucose 101 mg/dL (74-106); Magnesium 2.2 mg/dL (1.6-2.6); Osmolality,Calculated 286 (275-295); Phosphorous 4.2 mg/dL (2.4-5.1); Potassium 4.1 mMol/L (3.4-5.1); Sodium 144 mMol/L (136-145); eGFR > 60 See Note
[2025-05-16 08:00] VITALS: BP 116/92; PULSE 83; RESP 17; TEMP 36.7; O2SAT 98
[2025-05-16] MEDS: NICOTINE PATCH 14 MG/24 HR PATCH.TD24 TOP (08:42)
[2025-05-16] MEDS: ENOXAPARIN SOD INJ 40 MG/0.4 ML SYRINGE SC (08:42)
--- NOTE | 2025-05-16 12:06 | ESDS_ITS ---
<Statement entered by Rosalie Wolfe MD - 05/27/25 07:44> I reviewed above note and agree with findings and plans. I have also personally examined the patient with medicine team and went over assessment and plan with medical team including internet ecommerce specialist and resident physician. <Statement entered by Josiah Dumont MD - 05/16/25 14:13> Patient was examined and case was reviewed with team including attending physician. Note reviewed, I agree with most of its contents and agree with the patient's care. Josiah Dumont MD PGY-2 Planned Discharge Date 05/16/25 DS: Providers Provider Date of admission: 05/15/25 17:20 Primary care physician: Cain Reyna MD Admitting Provider: Rosalie Wolfe MD Attending Provider on Admission: Rosalie Wolfe MD Consults: 05/13/25 14:07 Referral OP Wound Healing Dept Routine Comment: Attending Provider on DC: Rosaile Wolfe MD Discharging Provider: Aida Hines DO Anticipated date of discharge: 05/16/25 DS: Diagnosis Problem List Completed Was Problem List Reviewed/Reconciled?: Yes Hospital Course Hospital Course Hospital course: 44-year-old male with a history of prior cerebrovascular accident, traumatic brain injury with bilateral subdural hematomas and occipital bone fractures, and polysubstance use who re-presented to the emergency department on 05/13/2025 with worsening left upper extremity pain, swelling, erythema, and purulence, associated with chills, following recent discharge for left upper extremity cellulitis. The patient had been discharged on 05/12/2025 on oral antibiotics but was unable to initiate therapy due to lack of pharmacy access, resulting in progression of infection. On re-presentation, examination was notable for purulent drainage and circumferential edema extending from the wrist toward the axilla. Initial workup showed leukocytosis and elevated inflammatory markers. CTA of the left upper extremity and venous Doppler ultrasound were negative for vascular pathology or deep vein thrombosis. The patient was admitted and started on IV vancomycin with close clinical monitoring. Blood cultures remained negative. Over the course of hospitalization, the patient demonstrated marked clinical improvement, with decreasing pain, swelling, and erythema of the left upper extremity, and down-trending white blood cell count. There was no evidence of sepsis, necrotizing soft tissue infection, or need for surgical intervention. By the day of discharge, the patient was afebrile, hemodynamically stable, tolerating oral intake, and had significant improvement in left upper extremity cellulitis after completion of IV antibiotics. He was transitioned to oral antibiotics and deemed medically stable for discharge home with close outpatient follow-up and strict return precautions. Patient is medically and physically stable for discharge. Discharge Diagnoses: #Severe Left Upper Extremity Cellulitis with Purulence #Failure of Outpatient Antibiotic Therapy #Polysubstance Use Disorder #History of Cerebrovascular Accident #History of Traumatic Brain Injury with Prior Subdural Hematomas Discharge Plan: Follow up with primary care physician within 1 week of discharge Instructions have been explained to the patient with regards to their medi cations and how to take them. Patient was able to explain back to physician and nursing staff how to take their medications. Patient expressed understanding with instructions. New Medications: Bactrim which is an antibiotic for 9 more days, please take as prescribed. Continue to take the rest of your medications as prescribed by your primary care physician. Patient has been explained that should any symptoms recur or worsen patient is instructed to return to the Emergency Department. --- Case discussed with my senior resident Dr. Ariel Dumont Case discussed with my attending Dr. Wolfe. Aida Hines DO PGY-1 Status at Discharge Overall status at discharge: patient is back to baseline Time Spent with Patient Time attestation: Total time spent providing and/or coordinating discharge services: Time spent: Greater than 30 minutes Exam Vital Signs Temp Pulse Resp BP Pulse Ox O2 Del Method 98.1 F 83 17 116/92 H 98 Room Air 05/16/25 08:00 05/16/25 08:00 05/16/25 08:00 05/16/25 08:00 05/16/25 08:00 05/16/25 08:00 Narrative Exam Physical Exam General: Awake and in no acute distress. Conversational and non-toxic appearing. HEENT: Normocephalic, atraumatic, extraocular movements intact, pupils equal and reactive to light. No JVD or bruits. Heart: Regular rate and rhythm, no murmurs, rubs or gallops. Lungs: Clear to auscultation with no wheezing or crackles bilaterally. Non- labored respirations, symmetric chest rise, no use of accessory muscles. Abdomen: Soft, nondistended, nontender. No guarding or rebound tenderness. Neurologic: Alert and oriented x3, no gross neurological deficit, and patient able to move all 4 extremities. Extremities: Left upper extremity with markedly improved erythema and swelling. No new drainage or purulence. No fluctuance or crepitus. Improved range of motion. Skin: Warm and dry without rashes. Psychiatric: Cooperative, appropriate mood and affect. Discharge Plan Plan Patient Disposition: HOME (Self Care) Patient condition on transfer: Stable Care Plan Goals: Follow up with primary care physician within 1 week of discharge Instructions have been explained to the patient with regards to their medications and how to take them. Patient was able to explain back to physician and nursing staff how to take their medications. Patient expressed understanding with instructions. New Medications: Bactrim which is an antibiotic for 9 more days, please take as prescribed. Continue to take the rest of your medications as prescribed by your primary care physician. Patient has been explained that should any symptoms recur or worsen patient is instructed to return to the Emergency Department. Prescriptions/Referrals Prescriptions/Med Rec: New sulfamethoxazole-trimethoprim [Bactrim] 400-80 mg tablet 1 tab PO BID 9 Days Qty: 18 0RF Discontinued sulfamethoxazole-trimethoprim [Bactrim] 400-80 mg tablet 1 tab PO BID 10 Days Qty: 20 0RF Referrals: Ponce Salcedo MD [Physician, Wound Care] Cain Reyna MD [Primary Care Provider] Patient/Caregiver Discharge Instructions Education Materials: Discharge Instructions for Cellulitis Print Language: Bulgarian Stand Alone Forms: Tonie Award Info., Patient Portal Info Letter, Work/Release Restrictions Discharge Order Discharge Orders: Discharge (Routine); Ordered 05/16/25 Ordered By: Aida Hines Quality Discharge Quality Measures VTE prophylaxis
== END 2025-05-16 10:59 | disposition home or self-care (01) | DRG 383 ==
LOC: SERX 13:07 → S3SX 17:04 → SERHOLD 05-17 13:27
PROVIDERS: Physician Assistant; Admitting Provider Internal Medicine; Emergency Provider Emergency Medicine; PCP Family Medicine; Visit Provider Internal Medicine
DX: L03.114 Cellulitis of left upper limb (principal); F19.10 Other psychoactive substance abuse, uncomplicated; F17.200 Nicotine dependence, unspecified, uncomplicated; Z87.820 Personal history of traumatic brain injury; Z53.29 Procedure and treatment not carried out because of patient's decision for other reasons; Z88.5 Allergy status to narcotic agent; Z88.0 Allergy status to penicillin
CPT/HCPCS: 36415; 73206; 80048; 80053; 80202; 83605; 83735; 84100; 84145; 85025; 85652; 86140; 87040; 87070; 87081; 87205; 93971; 96365; 96366; 96375; 99284; A4649; G0378; J0736; J1650; J1956; J2270; J2470; J3374; J3375; J7030; J7999; Q9967; A9270